=== PATIENT | female | born 1980 | race American Indian/Alaskan Native ===

== ENCOUNTER 2023-03-15 18:19 | Emergency (ER) | payer MEDICAID, SELFPAY ==
[~2023-03-15] VITALS: Ht 154.9 cm; Wt 137.0 kg
[~2023-03-15 18:19] MED LIST: FLUT1DIS6 IH; LEVAHFA IH; SERT-162 PO
[2023-03-15 19:52] VITALS: TEMP 98.6
[2023-03-15 20:19] LABS: BASOPHILS % (AUTO) 0.2 % (0.0-2.0); EOSINOPHILS % (AUTO) 0.8 % (1.0-6.0); HEMATOCRIT 29.4 % (36-46); HEMOGLOBIN 9.9 g/dL (12.0-16.0); LYMPHOCYTES # (AUTO) 1.2 K/uL (1.0-4.8); LYMPHOCYTES % (AUTO) 15.7 % (22.0-44.0); MEAN CORPUSCULAR HGB CONC 33.8 G/dL (31.0-37.0); MEAN CORPUSCULAR VOLUME 77 fL (80-100); MONOCYTES # (AUTO) 0.5 K/uL (0.1-1.0); MONOCYTES % (AUTO) 6.1 % (2.0-9.0); NEUTROPHILS # (AUTO) 6.1 K/uL (1.8-7.7); NEUTROPHILS % (AUTO) 77.2 % (40.0-70.0); PLATELET COUNT (AUTO) 179 K/uL (150-450); RED BLOOD CELL COUNT(AUTO) 3.82 MIL/uL (4.00-5.20); RED CELL DISTRIBUTION WIDTH 13.6 % (11.5-14.5); WHITE BLOOD COUNT (AUTO) 7.9 K/uL (4.5-11.0)
[2023-03-15 20:21] LABS: COVID AG,FIA SOURCE NASAL SWAB
[2023-03-15 20:25] LABS: ANION GAP 10 mmol/L (8-16); CALCIUM, TOTAL 8.6 mg/dL (8.8-10.5); CARBON DIOXIDE 26 mmol/L (22-29); CHLORIDE 103 mmol/L (98-107); CREATININE 0.58 mg/dL (0.60-1.30); GLOMERULAR FILTR. RATE CALC > 60 mL/min (>60); GLUCOSE,RANDOM 137 mg/dL (70-110); POTASSIUM 3.6 mmol/L (3.5-5.1); SODIUM SERUM 139 mmol/L (136-145); UREA NITROGEN, BLOOD 7 mg/dL (7-18)
[2023-03-15 20:33] LABS: TROPONIN I-HIGH SENSITIVITY 15 ng/L (<51)
[2023-03-15 20:38] LABS: ALANINE AMINOTRANSFERASE 44 U/L (12-78); ALBUMIN 3.1 g/dL (3.4-5.0); ALKALINE PHOSPHATASE 119 U/L (46-116); ASPARTATE AMINOTRANSFERASE 48 U/L (15-37); BILIRUBIN,TOTAL 0.2 mg/dL (0.1-1.0); HCG,QUANTITATIVE < 1 mIU/mL (0-6)
[2023-03-15 20:53] LABS: RBC MORPHOLOGY COMMENT ABNORMAL RBC MORPH
[2023-03-15 20:54] LABS: INFLUENZA TYPE A NEGATIVE FOR TYPE A (NEGATIVE); INFLUENZA TYPE B NEGATIVE FOR TYPE B (NEGATIVE); SARS-COV2 (COVID) ANTIGEN,FIA Negative (Negative)
[2023-03-15] MEDS: ALBUTEROL SULFATE HFA 90 MCG/PUFF 8 GM INHALER IH ONE (21:26)
[2023-03-15] MEDS ORDERED: AMOX1TAB16 PO (22:14)
[2023-03-15] MEDS ORDERED: PRED-554 PO (22:14)
[2023-03-15 22:30] VITALS: BP 126/70; PULSE 96; RESP 18
[2023-03-15] MEDS: PredniSONE 20 MG TABLET PO ONE (22:30)
[2023-03-15] MEDS: AMOX TR/POT CLAV 875 MG/125 MG TABLET PO ONE (22:30)
== END 2023-03-15 22:37 | disposition home or self-care (01) ==
LOC: EMS 18:20
DX: K04.7 Periapical abscess without sinus (principal); J40 Bronchitis, not specified as acute or chronic; F41.9 Anxiety disorder, unspecified; J45.909 Unspecified asthma, uncomplicated; Z87.891 Personal history of nicotine dependence; Z88.6 Allergy status to analgesic agent; Z20.822 Contact with and (suspected) exposure to COVID-19
CPT/HCPCS: 99284; 71045; 87426; 80053; 84484; 84702; 85025; 87804; 36415; 94640; J7512; J3535

== ENCOUNTER 2023-04-16 11:58 | Emergency (ER) | payer MEDICAID ==
[~2023-04-16] VITALS: Ht 172.7 cm; Wt 134.6 kg
[~2023-04-16 11:58] MED LIST changes: +AMOX1TAB16 PO; +PRED-554 PO
[2023-04-16 12:20] VITALS: TEMP 98.2
[2023-04-16] MEDS ORDERED: MECL-302 PO (13:56)
[2023-04-16] MEDS: MECLIZINE HCL 25 MG TABLET PO ONE (13:59)
[2023-04-16 14:19] VITALS: BP 131/82; PULSE 82; RESP 16
== END 2023-04-16 14:43 | disposition home or self-care (01) ==
LOC: EMS 12:54
DX: H81.391 Other peripheral vertigo, right ear (principal); F41.9 Anxiety disorder, unspecified; J45.909 Unspecified asthma, uncomplicated; F31.9 Bipolar disorder, unspecified; Z87.891 Personal history of nicotine dependence; Z88.6 Allergy status to analgesic agent
CPT/HCPCS: 70450; 99284

== ENCOUNTER 2023-06-14 17:03 | Emergency (ER) | payer MEDICAID ==
[~2023-06-14] VITALS: Ht 170.2 cm; Wt 129.6 kg
[~2023-06-14 17:03] MED LIST changes: +MECL-302 PO
[2023-06-14 17:21] VITALS: BP 161/98; PULSE 94; RESP 16; TEMP 98.2
[2023-06-14] MEDS: LORazepam 1 MG TABLET PO ONE (18:01)
[2023-06-14 19:21] LABS: BASOPHILS % (AUTO) 0.3 % (0.0-2.0); EOSINOPHILS % (AUTO) 0.8 % (1.0-6.0); HEMATOCRIT 30.2 % (36-46); HEMOGLOBIN 9.5 g/dL (12.0-16.0); LYMPHOCYTES # (AUTO) 1.6 K/uL (1.0-4.8); LYMPHOCYTES % (AUTO) 15.9 % (22.0-44.0); MEAN CORPUSCULAR HEMOGLOBIN 20.8 pg (26.0-34.0); MEAN CORPUSCULAR HGB CONC 31.5 G/dL (31.0-37.0); MEAN CORPUSCULAR VOLUME 66 fL (80-100); MONOCYTES # (AUTO) 0.6 K/uL (0.1-1.0); NEUTROPHILS # (AUTO) 7.7 K/uL (1.8-7.7); PLATELET COUNT (AUTO) 230 K/uL (150-450); RED BLOOD CELL COUNT(AUTO) 4.57 MIL/uL (4.00-5.20); RED CELL DISTRIBUTION WIDTH 16.2 % (11.5-14.5)
[2023-06-14 19:29] LABS: ANION GAP 10 mmol/L (8-16); CALCIUM, TOTAL 8.8 mg/dL (8.8-10.5); CARBON DIOXIDE 25 mmol/L (22-29); CHLORIDE 102 mmol/L (98-107); CREATININE 0.56 mg/dL (0.60-1.30); GLOMERULAR FILTR. RATE CALC > 60 mL/min (>60); GLUCOSE,RANDOM 101 mg/dL (70-110); SODIUM SERUM 137 mmol/L (136-145); UREA NITROGEN, BLOOD 18 mg/dL (7-18)
[2023-06-14 19:36] LABS: ALANINE AMINOTRANSFERASE 99 U/L (12-78); ALBUMIN 3.3 g/dL (3.4-5.0); ALKALINE PHOSPHATASE 105 U/L (46-116); ASPARTATE AMINOTRANSFERASE 76 U/L (15-37); BILIRUBIN,TOTAL 0.2 mg/dL (0.1-1.0); TOTAL PROTEIN, SERUM 7.5 g/dL (6.4-8.2)
[2023-06-14] MEDS ORDERED: LORA-1000 PO (19:36)
[2023-06-14 19:48] LABS: RBC MORPHOLOGY COMMENT ABNORMAL RBC MORPH
== END 2023-06-14 19:45 | disposition home or self-care (01) ==
LOC: EMS 17:06
DX: N93.9 Abnormal uterine and vaginal bleeding, unspecified (principal); F41.9 Anxiety disorder, unspecified; R55 Syncope and collapse; J45.909 Unspecified asthma, uncomplicated; F31.9 Bipolar disorder, unspecified; F17.210 Nicotine dependence, cigarettes, uncomplicated; Z88.6 Allergy status to analgesic agent
CPT/HCPCS: 80053; 85025; 86850; 86900; 86901; 93005; 99284

== ENCOUNTER 2023-10-26 10:42 | Emergency (ER) | payer MEDICAID ==
[~2023-10-26] VITALS: Ht 172.7 cm; Wt 125.0 kg
[~2023-10-26 10:42] MED LIST changes: +AMOX-457 PO; -AMOX1TAB16 PO; +LORA-1000 PO
[2023-10-26 10:50] VITALS: BP 140/84; PULSE 98; RESP 16; TEMP 98.4; O2SAT 100
[2023-10-26 11:09] LABS: BASOPHILS % (AUTO) 0.5 % (0.0-2.0); HEMATOCRIT 28.1 % (36-46); HEMOGLOBIN 8.4 g/dL (12.0-16.0); LYMPHOCYTES # (AUTO) 1.5 K/uL (1.0-4.8); LYMPHOCYTES % (AUTO) 20.2 % (22.0-44.0); MEAN CORPUSCULAR HEMOGLOBIN 18.3 pg (26.0-34.0); MEAN CORPUSCULAR HGB CONC 29.9 G/dL (31.0-37.0); MEAN CORPUSCULAR VOLUME 61 fL (80-100); MONOCYTES # (AUTO) 0.5 K/uL (0.1-1.0); MONOCYTES % (AUTO) 6.5 % (2.0-9.0); NEUTROPHILS # (AUTO) 5.4 K/uL (1.8-7.7); NEUTROPHILS % (AUTO) 71.8 % (40.0-70.0); PLATELET COUNT (AUTO) 228 K/uL (150-450); RED BLOOD CELL COUNT(AUTO) 4.58 MIL/uL (4.00-5.20); WHITE BLOOD COUNT (AUTO) 7.6 K/uL (4.5-11.0)
[2023-10-26 11:32] LABS: RBC MORPHOLOGY COMMENT ABNORMAL RBC MORPH
[2023-10-26 11:38] LABS: PATHOLOGY REVIEW, DIFF YES
== END 2023-10-26 12:12 | disposition home or self-care (01) ==
LOC: EMS 10:42
DX: N93.9 Abnormal uterine and vaginal bleeding, unspecified (principal); D64.9 Anemia, unspecified; J45.909 Unspecified asthma, uncomplicated; Z88.6 Allergy status to analgesic agent
CPT/HCPCS: 84702; 85025; 99283